=== PATIENT | female | born 1965 ===

== ENCOUNTER 2020-05-26 11:17 | Observation (INO) | payer BC ==
[2020-05-26] VITALS (7 sets, daily range): BP systolic 113–153; BP diastolic 49–74; PULSE 71–87; TEMP 97.9–98.1
[~2020-05-26] VITALS: Ht 165.1 cm; Wt 145.6 kg
--- NOTE | 2020-05-26 11:45 | NUR ---
Patient arrives ambulatory to room 348. Here for cystoscopy per Dr Lam at 1230. Assessment completed. NPO since [id number]. No c/o at this time.
--- NOTE | 2020-05-26 12:10 | NUR ---
Patient to cystoscopy with surgical staff at this time.
[2020-05-26] MEDS ORDERED: NORCO 325 MG-51 TAB PO (12:12)
[2020-05-26] MEDS ORDERED: FLOMAX 0.40.4 MG/CAP PO (12:12)
--- NOTE | 2020-05-26 17:32 | NUR ---
Discharge instructions reviewed with patient, verbalized understanding. Discharged ambulatory to auto/home with family at 1725.
== END 2020-05-26 17:25 | disposition home or self-care (01) ==
LOC: SURG 11:17
PROVIDERS: ADMIT Urology
DX: N20.2 Calculus of kidney with calculus of ureter (principal); Z87.442 Personal history of urinary calculi; F17.210 Nicotine dependence, cigarettes, uncomplicated; E66.01 Morbid (severe) obesity due to excess calories; Z68.43 Body mass index [BMI] 50.0-59.9, adult; Z79.899 Other long term (current) drug therapy
CPT/HCPCS: C1769; C2617; J0690; J1100; J1940; J2370; J2405; J2704; J3010; J7060; Q9967